=== PATIENT | female | born 2005 | race Caucasian/White ===

== ENCOUNTER 2025-05-10 14:29 | Outpatient (CLI) | payer OTHER | END 2025-05-10 14:30 | disposition home or self-care (01) | LOC: SCSRAD 14:29 | PROVIDERS: ATTEND Student in an Organized Health Care Education/Training Program | DX: M79.671 Pain in right foot (principal); M79.672 Pain in left foot; M54.59 Other low back pain; M41.84 Other forms of scoliosis, thoracic region; M41.85 Other forms of scoliosis, thoracolumbar region | CPT/HCPCS: 72120 ==